=== PATIENT | female | born 1970 | race Caucasian/White ===

== ENCOUNTER 2021-01-11 06:59 | Day surgery (SDC) | payer MEDICAID ==
[2021-01-11] MEDS ORDERED: Depo-Medrol 40 MG/ML IM ONE (07:00)
[2021-01-11] MEDS ORDERED: LIDOCAINE HCL 2% 100 MG/5 ML IJ ONE (07:00)
[2021-01-11] MEDS ORDERED: DIPRIVAN 200 MG/20 ML IV ONE (08:28)
[2021-01-11] MEDS ORDERED: Lactated Ringers 1,000 ML IV ONE (16:09)
--- NOTE | 2021-01-12 11:29 | XRAY ---
19 seconds fluoroscopy time for bilateral L4-S1 MBB.
--- NOTE | 2021-01-14 22:25 | XRAY ---
Indication: Bilateral L4-S1 MBB. Intraoperative fluoroscopy was provided for 19 seconds. A single digital spot image submitted for interpretation demonstrates posterior needle tips projected over the expected course of the left and right L4-S1 nerve roots. Correlate with intraoperative findings/report
== END 2021-01-11 08:56 | disposition home or self-care (01) ==
LOC: SDC-PAIN 06:59
PROVIDERS: ATTEND Psychiatry & Neurology Pain Medicine
DX: M47.816 Spondylosis without myelopathy or radiculopathy, lumbar region (principal); E11.9 Type 2 diabetes mellitus without complications; Z79.899 Other long term (current) drug therapy
CPT/HCPCS: 64493; 64494; 72020; 77002; 82947; 84703; J1030; J2704

== ENCOUNTER 2021-02-22 08:32 | Day surgery (SDC) | payer MEDICAID ==
[2021-02-22] MEDS ORDERED: Depo-Medrol 40 MG/ML IM ONE (08:33)
[2021-02-22] MEDS ORDERED: BUPIVACAINE 0.5% VIAL IJ ONE (08:33)
[2021-02-22] MEDS ORDERED: DIPRIVAN 200 MG/20 ML IV ONE (10:21)
[2021-02-22] MEDS ORDERED: Ketamine HCl 50 MG/ML ONE (10:27)
--- NOTE | 2021-02-22 12:21 | XRAY ---
Indication: Bilateral L4-S1 MBB. Intraoperative fluoroscopy provided for 29 seconds. Single digital spot images submitted for interpretation demonstrates posterior needle tips projecting over the expected left and right L4-S1 nerve roots. Correlate with intraoperative findings/report.
[2021-02-22] MEDS ORDERED: Lactated Ringers 1,000 ML IV ONE (12:26)
--- NOTE | 2021-02-22 12:33 | XRAY ---
29 seconds of fluoroscopy was used in surgery for a bilateral L4-S1 MBB.
== END 2021-02-22 10:55 | disposition home or self-care (01) ==
LOC: SDC-PAIN 08:32
PROVIDERS: ATTEND Psychiatry & Neurology Pain Medicine
DX: M47.816 Spondylosis without myelopathy or radiculopathy, lumbar region (principal); E11.9 Type 2 diabetes mellitus without complications; Z79.899 Other long term (current) drug therapy
CPT/HCPCS: 64493; 64494; 72020; 77002; 82947; 84703; J1030; J2704

== ENCOUNTER 2021-03-22 09:23 | Day surgery (SDC) | payer MEDICAID ==
[2021-03-22] MEDS ORDERED: Depo-Medrol 40 MG/ML IM ONE (09:24)
[2021-03-22] MEDS ORDERED: BUPIVACAINE 0.5% VIAL IJ ONE (09:24)
[2021-03-22] MEDS ORDERED: Xylocaine 1% Vial 30 ML PF IJ ONE (09:24)
[2021-03-22] MEDS ORDERED: DIPRIVAN 200 MG/20 ML IV ONE (12:21)
[2021-03-22] MEDS ORDERED: Ketamine HCl 50 MG/ML ONE (12:21)
--- NOTE | 2021-03-22 13:40 | XRAY ---
49 seconds fluoroscopy time in surgery for left L4-S1 RFA.
--- NOTE | 2021-03-22 13:50 | XRAY ---
Indication: Left L4-S1 RFA. Intraoperative fluoroscopy provided for 49 seconds. 5 digital spot image submitted for interpretation demonstrates posterior needle tips projecting over the expected left L4-S1 nerve roots. Correlate with intraoperative findings/report.
[2021-03-22] MEDS ORDERED: Lactated Ringers 1,000 ML IV ONE (14:29)
== END 2021-03-22 12:55 | disposition home or self-care (01) ==
LOC: SDC-PAIN 09:23
PROVIDERS: ATTEND Psychiatry & Neurology Pain Medicine
DX: M47.816 Spondylosis without myelopathy or radiculopathy, lumbar region (principal); I10 Essential (primary) hypertension; E78.5 Hyperlipidemia, unspecified; I48.91 Unspecified atrial fibrillation; E11.9 Type 2 diabetes mellitus without complications; Z79.899 Other long term (current) drug therapy; Z79.01 Long term (current) use of anticoagulants
CPT/HCPCS: 64635; 64636; 72100; 77002; 82947; 84703; J1030; J2001; J2704